=== PATIENT | female | born 1955 | race Caucasian/White ===

== ENCOUNTER → 2024-04-24 | Outpatient (CLI) | payer MEDICARE | END | disposition home or self-care (01) | LOC: RAH 13:16 | PROVIDERS: ATTEND Internal Medicine Nephrology | DX: Z12.31 Encounter for screening mammogram for malignant neoplasm of breast (principal); N63.20 Unspecified lump in the left breast, unspecified quadrant; N63.10 Unspecified lump in the right breast, unspecified quadrant | CPT/HCPCS: 77067 ==

== ENCOUNTER → 2024-05-16 | Outpatient (CLI) | payer MEDICARE | END | disposition home or self-care (01) | LOC: RAH 12:53 | PROVIDERS: ATTEND Internal Medicine Nephrology | DX: R92.1 Mammographic calcification found on diagnostic imaging of breast (principal); R92.333 Mammographic heterogeneous density, bilateral breasts; R92.30 Dense breasts, unspecified; R92.8 Other abnormal and inconclusive findings on diagnostic imaging of breast | CPT/HCPCS: 77066 ==

== ENCOUNTER 2024-09-05 15:37 | Emergency (ER) | payer MEDICARE ==
[~2024-09-05] VITALS: Ht 157.5 cm; Wt 102.1 kg
--- NOTE | 2024-09-05 16:20 | ERN ---
ED Note History of Present Illness Stated Complaint: SKIN RASH Time Seen by MD: 15:59 Dictation: PATIENT HERE WITH MILD DISCOLORATION QUESTIONABLE CYANOSIS OF LEFT GREAT TOE ONSET YESTERDAY. PATIENT STATES SHE JUST GOT IN FROM VACATION IN [place] AND HAD FLOWN IN YESTERDAY DID NOT NOTICED THE DISCOLORATION UNTIL SHE THIS MORNING WHEN SHE TOOK OFF HER SHOES. SHE STATES SHE IS NOT IN ANY PAIN SHE STATES SHE DOES HAVE A HISTORY OF DIABETES HOWEVER DOES NOT CHECK HER BLOOD SUGAR. SHE DENIES ANY FEVER CHILLS DENIES HISTORY OF PID. NEUROVASCULAR CMS INTACT TO TOE MILD CYANOSIS AND DISCOLORATION NOTED. Allergies: Coded Allergies: morphine (Unverified Allergy, Unknown, 09/05/24) Past Medical History PSYCH History: no pertinent psych hx History: Not Applicable RN Note Reviewed/Agreed w/PFSH: Yes Review of System Dictation CONSTITUTIONAL: NEGATIVE EXCEPT FOR HPI HEAD/FACE: NEGATIVE EXCEPT FOR HPI EENT: NEGATIVE EXCEPT FOR HPI RESPIRATORY: NEGATIVE EXCEPT FOR HPI GASTROINTESTINAL/ABDOMINAL: NEGATIVE EXCEPT FOR HPI GENITOURINARY: NEGATIVE EXCEPT FOR HPI MUSCULOSKELETAL: NEGATIVE EXCEPT FOR HPI LEFT GREAT TOE DISCOLORATION INTEGUMENTARY: NEGATIVE EXCEPT FOR HPI NEUROLOGICAL/PSYCH: NEGATIVE EXCEPT FOR HPI HEMATOLOGIC/LYMPHATIC: NEGATIVE EXCEPT FOR HPI ALL SYSTEMS NEGATIVE, EXCEPT NOTED ABOVE. 13 POINT REVIEW OF SYSTEMS ASSESSED AND ALL NEGATIVE EXCEPT FOR ABOVE. Initial Vital Sign VS Vital Signs Date Time Temp Pulse Resp B/P (MAP) Pulse Ox O2 Delivery O2 Flow Rate FiO2 09/05/24 16:25 96.6 64 18 195/72 98 Room Air 09/05/24 17:24 0 21 Physical Exam Dictation VITAL SIGNS REVIEWED 0/10 PAIN GENERAL APPEARANCE: ALERT, ORIENTED X 3, NO ACUTE DISTRESS, WELL DEVELOPED, NOURISHED. OBESE HEAD AND FACE: NON-TRAUMATIC. EYES: PERRL, PINK CONJUNCTIVAS, EYELID NO TRAUMA, ANTERIOR CHAMBER WITH ARCUS SENILIS. EARS: PINNAS INTACT AND NO SIGNS OF TRAUMA OR ERYTHEMA EAR CANALS CLEAR AND NO DISCHARGE TM NO ERYTHEMA NOSE: NO DISCHARGE, NO BLEEDING. OROPHARYNX: MOUTH NORMAL, TONGUE PINK, PHARYNX CLEAR,NO ERYTHEMA, TONSILS NO EXUDATES, NO ABSCESSES NOTED, MUCOUS MEMBRANE MOIST NECK: SUPPLE, NON-TENDER, NO THYROMEGALY, NO MASSES, NO JVD, NO BRUITS BREAST:DEFERRED CHEST:NO TENDERNESS, NO CREPITUS, NO PARADOXICAL MOVEMENT, NO RETRACTIONS LUNGS:CLEAR, WELL-VENTILATED, SYMMETRIC, NO RALES, NO WHEEZING, NO RHONCHI, NO STRIDOR, GOOD BREATH SOUNDS BILATERALLY HEART: REGULAR RATE, REGULAR RHYTHM, NO MURMUR, NO GALLOPS VASCULAR: NO PERIPHERAL EDEMA, ABDOMEN: SOFT, POSITIVE BOWEL SOUNDS, NONDISTENDED, NO GUARDING, NONTENDER, NO REBOUND, NO MASSES NO HEPATOMEGALY, NO SPLENOMEGALY, NO BLAKE'S SIGN, NO HERNIAS. RECTAL: DEFERRED GENITAL: DEFERRED NEUROLOGICAL: NORMAL SPEECH, MOTOR FUNCTION INTACT, SENSORY FUNCTION INTACT MUSCULOSKELETAL: NECK NONTENDER, FULL RANGE OF MOTION, BACK NONTENDER, FULL RANGE OF MOTION, EXTREMITIES: NONTENDER, FULL RANGE OF MOTION DISCOLORATION AND MILD CYANOSIS OF LEFT GREAT TOE. NAIL IS INTACT, CAP REFILL IS BRISK LEG IS WARM TO TOUCH WITH NO CALF TENDERNESS SKIN: COLOR PINK, DRY, NO TURGOR, NO RASH, NO LACERATIONS, NO ABRASIONS, NO CONTUSIONS. LYMPHATIC: DEFERRED Results (Laboratory/Radiology) Laboratory/Radiology Laboratory Tests Test 09/05/24 17:14 White Blood Count 8.7 K/uL (4.8-10.8) Red Blood Count 4.09 MIL/uL (4.00-5.50) Hemoglobin 13.7 g/dL (12.0-16.0) Hematocrit 42.7 % (36-48) Mean Corpuscular Volume 104.4 fL (79-99) H Mean Corpuscular Hemoglobin 33.5 pg (27.0-33.0) H Mean Corpuscular Hemoglobin Concent 32.1 g/dL (32.0-36.0) Red Cell Distribution Width 12.9 % (11.0-15.5) Platelet Count 219 K/uL (130-400) Mean Platelet Volume 10.9 fL (7.5-10.5) H Immature Granulocyte % (Auto) 0.3 % (0-1) Neutrophils (%) (Auto) 72.2 % (40.0-77.0) Lymphocytes (%) (Auto) 13.4 % (21.0-51.0) L Monocytes (%) (Auto) 11.9 % (3.0-13.0) Eosinophils (%) (Auto) 1.9 % (0.0-8.0) Basophils (%) (Auto) 0.3 % (0.0-5.0) Neutrophils # (Auto) 6.3 K/uL (1.8-7.7) Lymphocytes # (Auto) 1.2 K/uL (1.0-4.8) Monocytes # (Auto) 1.0 K/uL (0.1-1.0) Eosinophils # (Auto) 0.17 K/uL (0.00-0.70) Basophils # (Auto) 0.03 K/uL (0.00-0.20) Absolute Immature Granulocyte (auto 0.03 K/uL (0-1) Nucleated Red Blood Cells 0.0 % (0.0-0.19) Sodium Level 137 mmol/L (136-145) Potassium Level 3.8 mmol/L (3.5-5.1) Chloride Level 100 mmol/L (101-111) L Carbon Dioxide Level 34 mmol/L (21-32) H Blood Urea Nitrogen 12 mg/dL (7-18) Creatinine 0.8 mg/dL (0.5-1.0) Glomerular Filtration Rate Calc 81 mL/min (>90) Random Glucose 91 mg/dL (70-105) Total Calcium 8.8 mg/dL (8.5-10.1) FOOT COMP 3+VWS LT REASON: CYANOSIS WITH MILD PAIN TO LEFT GREAT TOE ONSET YESTERDAY. TECHNIQUE: 3 views were obtained. FINDINGS: There is no evidence of fracture or dislocation. There is no joint effusion. The soft tissues appear unremarkable. There is no evidence of a radiopaque foreign body. There is no evidence of osteomyelitis. IMPRESSION: No acute findings. US ARTERIAL UNILA LOW EXT DUPL REASON: CYANOSIS OF LEFT GREAT TOE ONE DAY COMPARISON: None TECHNIQUE: Left leg arterial Doppler evaluation was performed with spectral analysis and color flow imaging. FINDINGS: There are normal triphasic waveforms common femoral artery through the midportion of the superficial femoral artery. The distal SFA is biphasic as is the popliteal artery. Flow velocities are mildly decreased in the popliteal. Posterior tibial, anterior tibial and dorsalis pedis arteries are monophasic with significantly decreased flow velocities and with damped waveforms. IMPRESSION: 1. Findings consistent with marked arterial inflow occlusion, at the distal SFA and at the trifurcation levels. Labs Reviewed?: Yes ED Course ED Course Orders Procedure Category Date Status Time Us Arterial Unila Low US 09/05/24 Resulted Ext Dupl 16:17 Foot Comp 3+Vws Lt RAD 09/05/24 Resulted 16:17 Cbc With Differential LAB 09/05/24 Complete 16:17 Basic Metabolic Panel LAB 09/05/24 Complete 16:17 Cephalexin 500 Mg PHA 09/05/24 Transmitted Capsule (Keflex 500 Mg 18:30 Vital Signs Date Time Temp Pulse Resp B/P (MAP) Pulse Ox O2 Delivery O2 Flow Rate FiO2 09/05/24 18:22 97.9 70 18 155/71 98 Room Air* 0 21 09/05/24 17:24 98.2 74 18 140/72 96 Room Air* 0 21 09/05/24 16:25 96.6 64 18 195/72 98 Room Air EIGHTEEN 20, SPOKE WITH DR.JAMES DONALDSON AND REVIEWED LAB X-RAY AND DOPPLER ULTRASOUND FINDINGS. HE SAID IF NEUROVASCULAR CMS INTACT AND NO SIGNS OF CRITICAL ISCHEMIA, OKAY TO DISCHARGE HOME AND HAVE PATIENT FOLLOW UP WITH HIM IN [place] OFFICE NEXT WEEK. THIS INFORMATION WAS CONVEYED TO THE PATIENT. Medical Decision Making MDM MDM: DIFFERENTIAL DIAGNOSIS: ISCHEMIC LEFT FOOT VERSUS CRITICAL ISCHEMIA VERSUS OSTEOMYELITIS VERSUS CELLULITIS/ELECTROLYTE IMBALANCE RATIONALE: TESTS CONSIDERED AND ORDERED SECONDARY TO SHARED DECISION MAKING INCLUDE:/DEHYDRATION LAB/RADIOLOGY PREVIOUS OUTSIDE RECORDS REVIEWED: OLD ER VISITS. REVIEWED RISK OF COMPLICATION AND/OR MORBIDITY OR MORTALITY OF PATIENT MANAGEMENT: MINIMAL MEDICATIONS-PER MEDICATION RECONCILIATION SEE NURSE'S NOTES NEED FOR HOSPITALIZATION: PATIENT DOES NOT MEET CRITERIA FOR HOSPITALIZATION. NO NEED FOR EMERGENCY MAJOR/MINOR SURGERY: NO, OUTPATIENT ANGIOPLASTY THERE ARE NO SOCIAL CONCERNS WITH THIS PATIENT. PRESCRIPTION DRUG MANAGEMENT KEFLEX PRESCRIPTIONS WILL INCLUDE SYMPTOMATIC CARE PATIENT'S PRIOR EXTERNAL MEDICAL RECORDS FROM OTHER ER VISITS WERE REVIEWED BY ME INDICATED. PRIOR TESTING AND RESULTS FROM PREVIOUS VISITS WERE REVIEWED. PRIOR TESTS WERE TAKEN INTO ACCOUNT WITH MEDICAL DECISION MAKING AND RESOURCE UTILIZATION, INDEPENDENT HISTORIAN/HISTORIANS WERE USED TO OBTAIN COMPLETE MEDICAL HISTORY. I INDEPENDENTLY INTERPRETED THE TEST THAT WERE PERFORMED, RESULTS WERE REVIEWED BY ME AND CONSIDERED FINDINGS ON RADIOLOGY IF ORDERED. MEDICAL MANAGEMENT AND EXAMINATION INTERPRETATION DISCUSSIONS WERE HAD BY ME WITH OTHER QUALIFIED HEALTHCARE PROFESSIONALS INDICATED FOR THE PATIENT'S CARE. DX & DISP Disposition: Discharge Departure Impression: Primary Impression: Ischemic pain of left foot Additional Impression: Stage 2 chronic kidney disease Condition: Stable Scripts Cephalexin (Cephalexin) 500 Mg Tablet 500 MG PO QID for 7 Days, #28 TAB Prov: ANNITA TRAMMELL NP 09/05/24 Additional Instructions: FOLLOW-UP WITH PRIMARY CARE PROVIDER IN 1 TO 2 DAYS. TAKE MEDICATIONS DIRECTED HERE IN THE EMERGENCY ROOM. OKAY TO CONTINUE HOME MEDICATIONS UNLESS OTHERWISE DISCUSSED DURING YOUR VISIT IN THE EMERGENCY ROOM TODAY. RETURN TO YOUR NEAREST EMERGENCY ROOM IF SYMPTOMS WORSEN OR IF THERE IS NO IMPROVEMENT. CALL 911 IF YOU NEED IMMEDIATE ASSISTANCE. TAKE TYLENOL OR MOTRIN [id number] NEEDED AND IF NO CONTRAINDICATIONS ARE PRESENT. INCREASE ORAL HYDRATION. A WOUND CULTURE OR URINE CULTURE WAS ORDERED HERE IN THE EMERGENCY ROOM DEPARTMENT PLEASE FOLLOW-UP WITH PRIMARY CARE PROVIDER AND ADVISE THEM TO GET REPEAT PORTS FROM OUR FACILITY. IF YOU HAD ANY DANIEL WRAP/SPLINTS THAT WERE APPLIED HERE, PLEASE DO NOT REMOVE THEM UNTIL YOU SEE YOUR PRIMARY CARE OR SPECIALTY. KEEP LEFT FOOT ELEVATED AT ALL TIMES. NO TIGHT-FITTING SHOES. CALL DR. RICHARD DONALDSON IN [place] AT [phone] FOR APPOINTMENT NEXT WEEK. TAKE ANTIBIOTICS DIRECTED UNTIL GONE. Referrals: KLAUDIA MENEDZ MD (PCP) RICHARD DONALDSON MD, JACK P NP Sep 05, 2024 16:20
--- NOTE | 2024-09-05 16:58 | HMCIMG ---
US ARTERIAL UNILA LOW EXT DUPL REASON: CYANOSIS OF LEFT GREAT TOE ONE DAY COMPARISON: None TECHNIQUE: Left leg arterial Doppler evaluation was performed with spectral analysis and color flow imaging. FINDINGS: There are normal triphasic waveforms common femoral artery through the midportion of the superficial femoral artery. The distal SFA is biphasic as is the popliteal artery. Flow velocities are mildly decreased in the popliteal. Posterior tibial, anterior tibial and dorsalis pedis arteries are monophasic with significantly decreased flow velocities and with damped waveforms. IMPRESSION: 1. Findings consistent with marked arterial inflow occlusion, at the distal SFA and at the trifurcation levels.
[2024-09-05 17:19] LABS: BASOPHILS # (AUTO) 0.03 K/uL (0.00-0.20); BASOPHILS % (AUTO) 0.3 % (0.0-5.0); EOSINOPHILS # (AUTO) 0.17 K/uL (0.00-0.70); EOSINOPHILS % (AUTO) 1.9 % (0.0-8.0); HEMATOCRIT 42.7 % (36-48); IMMATURE GRANULOCYTE ABSOLUTE 0.03 K/uL (0-1); LYMPHOCYTES # (AUTO) 1.2 K/uL (1.0-4.8); LYMPHOCYTES % (AUTO) 13.4 % (21.0-51.0); MEAN CORPUSCULAR HEMOGLOBIN 33.5 pg (27.0-33.0); MEAN CORPUSCULAR HGB CONC 32.1 g/dL (32.0-36.0); MEAN CORPUSCULAR VOLUME 104.4 fL (79-99); MONOCYTES % (AUTO) 11.9 % (3.0-13.0); NEUTROPHILS # (AUTO) 6.3 K/uL (1.8-7.7); NEUTROPHILS % (AUTO) 72.2 % (40.0-77.0); PLATELET COUNT (AUTO) 219 K/uL (130-400); RED BLOOD CELL COUNT(AUTO) 4.09 MIL/uL (4.00-5.50); RED CELL DISTRIBUTION WIDTH 12.9 % (11.0-15.5); WHITE BLOOD COUNT (AUTO) 8.7 K/uL (4.8-10.8)
[2024-09-05 17:28] LABS: CREATININE 0.8 mg/dL (0.5-1.0); POTASSIUM 3.8 mmol/L (3.5-5.1)
--- NOTE | 2024-09-05 17:29 | HMCIMG ---
FOOT COMP 3+VWS LT REASON: CYANOSIS WITH MILD PAIN TO LEFT GREAT TOE ONSET YESTERDAY. TECHNIQUE: 3 views were obtained. FINDINGS: There is no evidence of fracture or dislocation. There is no joint effusion. The soft tissues appear unremarkable. There is no evidence of a radiopaque foreign body. There is no evidence of osteomyelitis. IMPRESSION: No acute findings.
[2024-09-05 18:22] VITALS: BP 155/71; PULSE 70; RESP 18; TEMP 97.9; O2SAT 98
[2024-09-05] MEDS ORDERED: cePHALexin 500 MG CAPSULE PO SCH (18:30)
[2024-09-05] MEDS ORDERED: CEPH500T PO (18:31)
== END 2024-09-05 18:38 | disposition home or self-care (01) ==
LOC: EDH 15:37
DX: M79.672 Pain in left foot (principal); N18.2 Chronic kidney disease, stage 2 (mild); Z88.5 Allergy status to narcotic agent
CPT/HCPCS: 36415; 73630; 80048; 85025; 93926; 99284

== ENCOUNTER → 2024-10-15 | Outpatient (CLI) | payer MEDICARE ==
[~2024-10-15] MED LIST: CEPH500T PO
[2024-10-15 16:29] LABS: BASOPHILS # (AUTO) 0.05 K/uL (0.00-0.20); BASOPHILS % (AUTO) 0.5 % (0.0-5.0); EOSINOPHILS # (AUTO) 0.25 K/uL (0.00-0.70); EOSINOPHILS % (AUTO) 2.4 % (0.0-8.0); HEMATOCRIT 44.1 % (36-48); IMMATURE GRANULOCYTE ABSOLUTE 0.06 K/uL (0-1); LYMPHOCYTES # (AUTO) 1.8 K/uL (1.0-4.8); LYMPHOCYTES % (AUTO) 17.4 % (21.0-51.0); MEAN CORPUSCULAR HEMOGLOBIN 33.3 pg (27.0-33.0); MEAN CORPUSCULAR VOLUME 104.3 fL (79-99); MONOCYTES # (AUTO) 1.1 K/uL (0.1-1.0); MONOCYTES % (AUTO) 11.1 % (3.0-13.0); PLATELET COUNT (AUTO) 181 K/uL (130-400); RED BLOOD CELL COUNT(AUTO) 4.23 MIL/uL (4.00-5.50); RED CELL DISTRIBUTION WIDTH 12.8 % (11.0-15.5); WHITE BLOOD COUNT (AUTO) 10.3 K/uL (4.8-10.8)
[2024-10-15 16:39] LABS: INR 0.96 (0.85-1.15); PROTHROMBIN TIME 10.8 SEC (9.6-11.6)
[2024-10-15 16:40] LABS: PARTIAL THROMBOPLASTIN TIME 27.7 SEC (26.3-35.5)
[2024-10-15 16:44] LABS: CREATININE 0.7 mg/dL (0.5-1.0); POTASSIUM 4.5 mmol/L (3.5-5.1)
== END | disposition home or self-care (01) ==
LOC: LAB 15:10
PROVIDERS: ATTEND Student in an Organized Health Care Education/Training Program
DX: I11.9 Hypertensive heart disease without heart failure (principal); I25.83 Coronary atherosclerosis due to lipid rich plaque; I73.9 Peripheral vascular disease, unspecified; M79.605 Pain in left leg
CPT/HCPCS: 36415; 80048; 85025; 85610; 85730

== ENCOUNTER → 2025-03-14 | Outpatient (CLI) | payer MEDICARE ==
--- NOTE | 2025-03-14 12:04 | HMCIMG ---
BONE DENSITOMETRY: HISTORY: Asymptomatic menopausal state Comparison: none FINDINGS: BMD measured at AP spine L1-L4 is 0.933 g/cm2 with a T-score of minus 1. Bone density is up to 10% below young normal. This patient is considered normal according to WHO criteria. Fracture risk is low. BMD measured at Left Femoral Neck is 0.803 g/cm2 with a T-score of -0.4 Bone density is up to 10% below young normal. This patient is considered normal according to WHO criteria. Fracture risk is low. BMD measured at Left Femoral Total is 1.023 g/cm2 with a T-score of 0.7 Bone density is up to 10% below young normal. This patient is considered normal according to WHO criteria. Fracture risk is low. IMPRESSION: Normal bone mineral density.
== END | disposition home or self-care (01) ==
LOC: RAH 10:57
PROVIDERS: ATTEND Internal Medicine Nephrology
DX: Z78.0 Asymptomatic menopausal state (principal)
CPT/HCPCS: 77080

== ENCOUNTER → 2025-04-26 | Outpatient (CLI) | payer MEDICARE | END | disposition home or self-care (01) | LOC: RAH 09:07 | PROVIDERS: ATTEND Internal Medicine Nephrology | DX: Z12.31 Encounter for screening mammogram for malignant neoplasm of breast (principal) | CPT/HCPCS: 77067 ==

== ENCOUNTER 2025-07-03 15:24 | Emergency (ER) | payer MEDICARE ==
[~2025-07-03] VITALS: Ht 157.5 cm; Wt 94.3 kg
--- NOTE | 2025-07-03 17:27 | HMCIMG ---
EXAM: US for Deep Venous Thrombosis, leftLower Extremity. CLINICAL HISTORY: Leg Pain and Swelling TECHNIQUE: Real-time ultrasound scan of the veins of the right lower extremity with color Doppler flow, spectral waveform analysis and compression. COMPARISON: None provided. FINDINGS: DEEP VEINS: The common femoral, superficial femoral, and popliteal veins are echolucent and compressible. There is normal color Doppler flow throughout. The visualized calf veins appear patent. SOFT TISSUES: No popliteal fossa cyst or other abnormalities. IMPRESSION: No deep venous thrombosis evident on left lower extremity examination. /Bennett
--- NOTE | 2025-07-03 17:37 | ERN ---
ED Note History of Present Illness Stated Complaint: NUMBNESS TO LEFT LEG Chief Complaint: Lower Extremity Pain/Injury Time Seen by MD: 15:33 Time Seen by Midlevel: 15:38 Dictation: 69-year-old female with a history of hypertension, diabetes, cholesterol and PID coming in with complaints of feeling numbness in the left leg yesterday while he was at a store. Patient states today that numbness is better however he has spoke to her specialist from [place] and was told to come into the emergency room to get an ultrasound to rule out a clot. Patient is already taking Xarelto and Plavix. Allergies: Coded Allergies: morphine (Unverified Allergy, Unknown, 09/05/24) Home Meds Active Scripts Cephalexin (Cephalexin) 500 Mg Tablet, 500 MG PO QID for 7 Days, #28 TAB Prov:ANNITA TRAMMELL MAJOR APPLIANCE [employer]SEMBLY SUPERVISOR 09/05/24 Past Medical History Past Medical History: Diabetes-Type II, High Cholesterol, Hypertension, Seizure Surgical History: None History: Not Applicable Review of System Dictation Constitutional: Negative for fever,chills, and weight loss Eyes: Negative for injury, pain,redness, and discharge ENT: Negative for injury,pain or swelling Cardiovascular: Negative for chest pain, palpitations, and edema Respiratory: Negative for shortness of breath, cough, and wheezing, Abdomen/GI: Negative for abdominal pain, nausea, vomiting, diarrhea, and constipation Back: Negative for injury and pain : Negative for injury, bleeding and discharge MS/Extremity: Negative for injury and deformity, complaining of left leg numbness yesterday Skin: Negative for rash, and discoloration Neuro: Negative for headache, weakness, numbness, tingling, and seizure Psych: Negative for suicide ideation, homicidal ideation, and hallucinations Review of Systems: was completed Initial Vital Sign VS Vital Signs Date Time Temp Pulse Resp B/P (MAP) Pulse Ox O2 Delivery O2 Flow Rate FiO2 07/03/25 15:25 97.3 63 16 184/90 98 Room Air 07/03/25 16:24 0 21 Physical Exam Dictation General: awake, alert, NAD Head/Face: Normocephalic, atraumatic Eyes: PERRL, EOMI, vision at baseline ENT: oral cavity clear, TMs clear, no signs of infection Neck: Trachea midline, supple, no nuchal rigidity Cardiovascular: RRR, normal S1/S2, No MRGs, no JVD Respiratory: CTAB, no respiratory distress, No rales or wheezes Abdomen: Soft, non-tender, non-distended, normal bowel sounds, no guarding or rebound. Skin: Warm, dry, normal turgor, no rash MS/Extremity: Pulses equal, no cyanosis, neurovascular intact, FROM, tremors warmth to touch Neuro: COAx4, GCS 15, strength 5/5, CN 2-12 intact, normal cerebellar exam, normal gait, Psych: Normal behavior, mood, and affect normal ED Course ED Course Orders Procedure Category Date Status Time Us Venous Doppler US 07/03/25 Resulted Unilateral 15:56 Vital Signs Date Time Temp Pulse Resp B/P (MAP) Pulse Ox O2 Delivery O2 Flow Rate FiO2 07/03/25 17:41 98.1 70 17 145/70 98 Room Air* 0 21 07/03/25 16:24 98.2 62 16 120/62 98 Room Air* 0 21 07/03/25 15:25 97.3 63 16 184/90 98 Room Air Medical Decision Making MDM MDM: 69-year-old female with a history of hypertension, diabetes, cholesterol and PID coming in with complaints of feeling numbness in the left leg yesterday while he was at a store. Patient states today that numbness is better however he has spoke to her specialist from [place] and was told to come into the emergency room to get an ultrasound to rule out a clot. Patient is already taking Xarelto and Plavix. Ultrasound of the left leg revealed no DVT. Discussed with the patient that he needs to call her specialist tomorrow and let him know of the results. Patient states she has not appointment with them next week but we will call to see if she can get a sooner appointment. Discussed with the patient if she begins with discoloration,: Sensation to the leg, worsening numbness to return back to the emergency room. Patient verbalized understanding, answered all questions. Differential diagnosis: PID, DVT, paresthesia Rationale: Tests considered and ordered secondary to shared decision making include: Previous outside records reviewed: Old ER visits. Risk of complication and/or morbidity or mortality of patient management: None Medications-Per medication reconciliation Need for hospitalization: Patient does not meet criteria for hospitalization. Need for emergency major/minor surgery: No There are no social concerns with this patient. Prescription drug management Prescriptions will include symptomatic care Patient's prior external medical records from other ER visits were reviewed by me as indicated. Prior testing and results from previous visits were reviewed. Prior tests were taken into account with medical decision making and resource utilization, independent historian/historians were used to obtain complete medical history. I independently interpreted the test that were performed, results were reviewed by me and considered findings on radiology if ordered. Medical management and examination interpretation discussions were had by me with other qualified healthcare professionals as indicated for the patient's care. DX & DISP Disposition: Discharge Departure Impression: Primary Impression: History of peripheral arterial disease Condition: Stable Additional Instructions: Call your specialist tomorrow and see if they can see you sooner than next week. Return to the hospital immediately if you have any discoloration of your leg or toes, cooling sensation, extreme pain and or worsening numbness. Referrals: KLAUDIA MENDEZ MD (PCP) Time of Disposition: 17:36 I have reviewed the case, and I agree with, Diagnosis and Plan MONIK GARG NP Jul 03, 2025 17:37 RAQUEL BUSTILLO DO Jul 03, 2025 17:52
[2025-07-03 17:41] VITALS: BP 145/70; PULSE 70; RESP 17; TEMP 98; O2SAT 98
== END 2025-07-03 17:51 | disposition home or self-care (01) ==
LOC: EDH 15:24
DX: E11.51 Type 2 diabetes mellitus with diabetic peripheral angiopathy without gangrene (principal); E78.00 Pure hypercholesterolemia, unspecified; I10 Essential (primary) hypertension; M79.662 Pain in left lower leg; Z88.5 Allergy status to narcotic agent; Z79.899 Other long term (current) drug therapy
CPT/HCPCS: 93971; 99284